=== PATIENT | male | born 1985 ===

== ENCOUNTER 2018-02-25 18:14 | Emergency (ER) | payer SELFPAY ==
[2018-02-25 18:16] VITALS: BP 164/80; PULSE 125; RESP 16; TEMP 37.9; O2SAT 100; BMI 34.9
--- NOTE | 2018-02-25 18:34 | ED.RN ---
THIS RN WENT INTO SECOND TRIAGE [facility]OM WHERE PT WAS TO START AN IV. PT REFUSED; STATES DO YOU KNOW HOW LONG IT IS GOING TO TAKE BECAUSE I DON'T WANT TO WAIT THAT LONG. I HAVE THINGS TO DO. PT REPORTS THAT REDNESS IS SPREADING UP HIS RIGHT LEG, AND HE HAS HAD A FEVER, BUT HE JUST STARTED HIS ANTIBIOTICS TODAY. THIS RN EDUCATING PT THAT WITH A FEVER AND WORSENED INFECTION FROM EARLIER (OF WHICH PT REPORTED) THAT HE MAY NEED AN IV AND BLOOD WORK AND THE POTENTIAL CONSEQUENCES OF LEAVING WITHOUT BEING SEEN. PT STATES, I UNDERSTAND AND IF ANYTHING GETS WORSE THAN THIS THEN I WILL JUST COME BACK. PT REPORTS AGAIN THAT HE DOES NOT WANT TO WAIT. PT AMBULATES OUT OF ED WITH FRIEND.
== END 2018-02-25 19:23 | disposition left against medical advice (07) ==
LOC: ED 19:12
PROVIDERS: Emergency Provider Emergency Medicine
DX: R69 Illness, unspecified (principal)